=== PATIENT | female | born 1980 | race Asian ===

== ENCOUNTER 2016-10-13 11:38 | Emergency (ER) | payer OTHER ==
[~2016-10-13] VITALS: Ht 160 cm; Wt 65.3 kg
[2016-10-13 11:38] VITALS: BP_SYST 129
--- NOTE | 2016-10-13 11:38 | NUR ---
Patient triaged and placed in waiting room. VSS and patient appears in no acute distress at this time. Accompanied by SELF, awaiting available bed, and MD notified of need for MSE.
--- NOTE | 2016-10-13 12:00 | NUR ---
BROUGHT BACK TO BED #7 AND TRIAGED. REPORT GIVEN TO CALDERON
--- NOTE | 2016-10-13 12:05 | NUR ---
Dr. Arrieta at bedside examining patient.Recieved new orders.
--- NOTE | 2016-10-13 12:10 | NUR ---
Patient brought self in with chief complaint of fever and joint pain related to her lupus.Patient is alert and oriented x 4, able to verbalize her needs complaining of fever and joint pain. No other complaints, injuries per patient, none noted.
[2016-10-13] MEDS ORDERED: LEVOFLOXACIN 500 MG/D5W 100 ML IV ONE (12:15)
[2016-10-13] MEDS ORDERED: KETOROLAC TROMETHAMINE 30 MG VIAL IVP ONE (12:15)
[2016-10-13] MEDS ORDERED: NACL 0.9% 1,000 ML IV ONE (12:15)
[2016-10-13] MEDS ORDERED: ACETAMINOPHEN 500 MG TABLET PO ONE (12:15)
[2016-10-13 12:19] LABS: BASOPHILS % (AUTO) 0.2 % (0.0-2.0); EOSINOPHILS % (AUTO) 0.3 % (0.0-4.0); HEMATOCRIT 40.8 % (36-48); HEMOGLOBIN 13.5 g/dL (12.0-16.0); LYMPHOCYTES # (AUTO) 0.9 K/uL (1.0-5.5); LYMPHOCYTES % (AUTO) 16.8 % (20.5-51.5); MEAN CORPUSCULAR HEMOGLOBIN 28 pg (27-31); MEAN CORPUSCULAR HGB CONC 33 % (32-36); MEAN CORPUSCULAR VOLUME 85 fL (79.0-98.0); MONOCYTES # (AUTO) 0.3 K/uL (0.0-1.0); MONOCYTES % (AUTO) 5.1 % (1.7-9.3); NEUTROPHILS # (AUTO) 4.3 K/uL (1.8-7.7); NEUTROPHILS % (AUTO) 77.6 % (40.0-70.0); PLATELET COUNT (AUTO) 188 K/uL (130-430); RED BLOOD CELL COUNT(AUTO) 4.82 MIL/uL (4.2-6.2); RED CELL DISTRIBUTION WIDTH 11.1 % (9.0-15.0); WHITE BLOOD COUNT (AUTO) 5.5 K/uL (4.8-10.8)
[2016-10-13 12:37] LABS: PROTHROMBIN TIME 10.8 SECS (9.5-12.5)
[2016-10-13 12:41] LABS: CALCIUM 9.1 mg/dL (8.4-11.0); CREATININE 0.75 mg/dL (0.55-1.30); POTASSIUM 3.7 mmol/L (3.5-5.1)
[2016-10-13 12:48] LABS: ALBUMIN 3.7 g/dL (3.4-4.8); TOTAL BILIRUBIN 0.2 mg/dL (0.0-1.0); TOTAL PROTEIN, SERUM 8.4 g/dL (6.4-8.3)
[2016-10-13 13:04] LABS: BILIRUBIN,URINE NEGATIVE (NEGATIVE); BLOOD, URINE TRACE (NEGATIVE); CLARITY/URINE CLEAR (CLEAR); COLOR,URINE YELLOW (YELLOW); GLUCOSE,URINE NEGATIVE (NEGATIVE); KETONES,URINE NEGATIVE (NEGATIVE); LEUKOCYTE ESTERASE ,URINE 1+ (NEGATIVE); NITRITE, URINE NEGATIVE (NEGATIVE); PROTEIN URINE TRACE (NEGATIVE); UROBILINOGEN,URINE 0.2 (0.2-1.0)
[2016-10-13 13:09] LABS: ERYTHROCYTE SEDIMENTATION RATE 30 MM/HR (0-20)
[2016-10-13 13:23] LABS: BACTERIA,URINE RARE /HPF (None Seen); RBC,URINE 0-3 /HPF (0-3)
--- NOTE | 2016-10-13 13:30 | NUR ---
Oral temp 102.2
[2016-10-13 16:30] VITALS: BP_SYST 129
--- NOTE | 2016-10-13 16:30 | NUR ---
Patient given written and verbal discharge instructions and verbalizes understanding. ER MD Arrieta discussed with patient the results and treatment provided. Given copies of tests performed in ER. Patient in stable condition. ID arm band removed. IV catheter removed intact and dressing applied, no active bleeding. Rx of Cipro given. Patient educated on pain management and to follow up with PMD. Pain Scale 0/10. Opportunity for questions provided and answered.
== END 2016-10-13 16:30 | disposition home or self-care (01) ==
LOC: SED 11:38
DX: R50.9 Fever, unspecified (principal); J45.909 Unspecified asthma, uncomplicated; M32.9 Systemic lupus erythematosus, unspecified; Z88.0 Allergy status to penicillin; Z88.1 Allergy status to other antibiotic agents
CPT/HCPCS: 36415; 71010; 80053; 81000; 83605; 85025; 85610; 85651; 85730; 86710; 87040; 87086; 93005; 96365; 96375; 99285; J1885; J1956

== ENCOUNTER 2020-05-08 08:56 | Outpatient (CLI) | payer OTHER ==
[2020-05-08] MEDS ORDERED: GADOBENATE DIMEGLUMINE 529 MG/ML, 15 ML VIAL IV ONE (09:49)
== END 2020-05-09 15:09 | disposition home or self-care (01) ==
LOC: SMI 08:56
DX: R22.0 Localized swelling, mass and lump, head (principal)
CPT/HCPCS: 70543; 70553; A9577

== ENCOUNTER 2021-11-27 09:13 | Outpatient (CLI) | payer OTHER | END 2021-11-27 20:53 | disposition home or self-care (01) | LOC: SMI 09:13 | DX: M25.861 Other specified joint disorders, right knee (principal); M65.9 Synovitis and tenosynovitis, unspecified; M06.9 Rheumatoid arthritis, unspecified | CPT/HCPCS: 73221; 73721 ==

== ENCOUNTER 2023-03-28 06:54 | Emergency (ER) | payer OTHER ==
[~2023-03-28] VITALS: Ht 165.1 cm; Wt 70.3 kg
[2023-03-28 06:59] VITALS: BP_SYST 129; PULSE 108; RESP 18; TEMP 99.3; O2SAT 98
[2023-03-28] MEDS ORDERED: NACL 0.9% 1,000 ML IV ONE (07:15)
[2023-03-28] MEDS ORDERED: KETOROLAC TROMETHAMINE 30 MG VIAL IVP ONE (07:15)
[2023-03-28 07:27] LABS: BASOPHILS % (AUTO) 0.5 % (0.0-2.0); EOSINOPHILS # (AUTO) 0.1 K/uL (0.0-0.4); EOSINOPHILS % (AUTO) 2.3 % (0.0-4.0); HEMATOCRIT 37.2 % (36-48); HEMOGLOBIN 12.2 g/dL (12.0-16.0); LYMPHOCYTES # (AUTO) 0.9 K/uL (1.0-5.5); LYMPHOCYTES % (AUTO) 14.7 % (20.5-51.5); MEAN CORPUSCULAR HEMOGLOBIN 28 pg (27-31); MEAN CORPUSCULAR HGB CONC 33 % (32-36); MEAN CORPUSCULAR VOLUME 85 fL (79.0-98.0); MONOCYTES # (AUTO) 0.6 K/uL (0.0-1.0); MONOCYTES % (AUTO) 9.1 % (1.7-9.3); NEUTROPHILS # (AUTO) 4.7 K/uL (1.8-7.7); NEUTROPHILS % (AUTO) 73.4 % (40.0-70.0); PLATELET COUNT (AUTO) 264 K/uL (130-430); RED CELL DISTRIBUTION WIDTH 12.7 % (9.0-15.0); WHITE BLOOD COUNT (AUTO) 6.4 K/uL (4.8-10.8)
[2023-03-28 07:40] LABS: ERYTHROCYTE SEDIMENTATION RATE 41 MM/HR (0-20)
[2023-03-28 07:42] LABS: CREATININE 0.64 mg/dL (0.55-1.30); POTASSIUM 3.8 mmol/L (3.5-5.1)
[2023-03-28 07:47] LABS: ALBUMIN 3.4 g/dL (3.4-4.8); TOTAL BILIRUBIN 0.3 mg/dL (0.0-1.0); TOTAL PROTEIN, SERUM 7.8 g/dL (6.4-8.3)
[2023-03-28 08:40] LABS: INFLUENZA TYPE A Negative (NEGATIVE); INFLUENZA TYPE B NEGATIVE (NEGATIVE)
[2023-03-28] MEDS ORDERED: ONDANSETRON 4 MG ODT TAB PO ONE (09:30)
[2023-03-28] MEDS ORDERED: FIORCET PO PRN (09:30)
[2023-03-28] MEDS ORDERED: MORPHINE 2 MG/ML INJ. SYRINGE IVP ONE (10:00)
[2023-03-28] MEDS ORDERED: [UNRECOGNIZED DRUG - CODE] PO (11:04)
[2023-03-28] MEDS ORDERED: LEVO750T64 PO (11:04)
[2023-03-28 11:50] VITALS: BP_SYST 115; PULSE 77; RESP 18; TEMP 97.8; O2SAT 99
== END 2023-03-28 11:54 | disposition home or self-care (01) ==
LOC: SED 06:54
DX: J01.30 Acute sphenoidal sinusitis, unspecified (principal); R51.9 Headache, unspecified; M54.2 Cervicalgia; R11.0 Nausea; J45.909 Unspecified asthma, uncomplicated; Z88.0 Allergy status to penicillin; Z88.1 Allergy status to other antibiotic agents; Z79.899 Other long term (current) drug therapy; Z20.822 Contact with and (suspected) exposure to COVID-19
CPT/HCPCS: 99285; 96374; 70450; 96361; 96375; 87426; 80053; 85025; 85651; 87040; 84484; 36415; 93005; 76376; 83605; 87804 ×2; Q0162; J1885; J2270; J7030

== ENCOUNTER 2023-08-14 23:06 | Inpatient (IN) | payer OTHER ==
[~2023-08-14] VITALS: Ht 162.6 cm; Wt 66.7 kg
[~2023-08-14 23:06] MED LIST: LEVO750T64 PO; [UNRECOGNIZED DRUG - CODE] PO
[2023-08-14 23:18] VITALS: BP_SYST 138; PULSE 99; RESP 24; TEMP 98.9; O2SAT 100
[2023-08-15 00:48] LABS: BASOPHILS % (AUTO) 0.3 % (0.0-2.0); EOSINOPHILS # (AUTO) 0.1 K/uL (0.0-0.4); EOSINOPHILS % (AUTO) 0.8 % (0.0-4.0); HEMOGLOBIN 11.3 g/dL (12.0-16.0); LYMPHOCYTES # (AUTO) 0.9 K/uL (1.0-5.5); LYMPHOCYTES % (AUTO) 10.5 % (20.5-51.5); MEAN CORPUSCULAR HEMOGLOBIN 28 pg (27-31); MEAN CORPUSCULAR HGB CONC 33 % (32-36); MEAN CORPUSCULAR VOLUME 83 fL (79.0-98.0); MONOCYTES # (AUTO) 0.6 K/uL (0.0-1.0); MONOCYTES % (AUTO) 7.3 % (1.7-9.3); NEUTROPHILS % (AUTO) 81.1 % (40.0-70.0); PLATELET COUNT (AUTO) 366 K/uL (130-430); RED BLOOD CELL COUNT(AUTO) 4.09 MIL/uL (4.2-6.2); RED CELL DISTRIBUTION WIDTH 13.1 % (9.0-15.0); WHITE BLOOD COUNT (AUTO) 8.6 K/uL (4.8-10.8)
[2023-08-15 01:21] LABS: ALANINE AMINOTRANSFERASE 26 U/L (12-78); ALBUMIN 2.8 g/dL (3.4-4.8); ANION GAP 9 (5-15); ASPARTATE AMINOTRANSFERASE 16 U/L (10-37); CALCIUM 8.7 mg/dL (8.4-11.0); CARBON DIOXIDE 28 mmol/L (23-29); CHLORIDE 104 mmol/L (98-107); CREATININE 0.56 mg/dL (0.55-1.30); GFR AFRICAN AMERICAN 153 mL/min (>90); GFR NON AFRICAN-AMERICAN 127 mL/min (>90); GLUCOSE 204 mg/dL (74-106); POTASSIUM 3.9 mmol/L (3.5-5.1); SODIUM SERUM 141 mmol/L (136-145); TOTAL BILIRUBIN 0.1 mg/dL (0.0-1.0); UREA NITROGEN, BLOOD 15 mg/dL (8-21)
[2023-08-15] MEDS ORDERED: IOHEXOL 350 mgI/mL, 150 ML INFUS..BTL IV ONE (03:54)
[2023-08-15] MEDS: NACL 0.9% 1,000 ML IV ONE (04:12)
[2023-08-15] MEDS: MORPHINE 4 MG INJ. 4 MG/ML VIAL IVP ONE (04:14)
[2023-08-15] MEDS: IPRATROPIUM/ALBUTEROL SULFATE 3 ML AMPUL.NEB (DUONEB) INH ONE (05:10)
[2023-08-15] MEDS ORDERED: ONDANSETRON HCL 4 MG/2 ML VIAL IVP PRN (06:45)
[2023-08-15] MEDS ORDERED: PRED20TA (07:38)
[2023-08-15] MEDS ORDERED: METF-1069 PO (07:38)
[2023-08-15] MEDS ORDERED: METH2.5S PO (07:38)
[2023-08-15] MEDS ORDERED: HYDR200T80 PO (07:38)
[2023-08-15 09:07] VITALS: BP_SYST 133; PULSE 87; RESP 18; TEMP 97; O2SAT 99
[2023-08-15 09:10] VITALS: BP_SYST 133; PULSE 87; RESP 18; TEMP 97; O2SAT 99
[2023-08-15] MEDS: METHYLPREDNISOLONE SOD SUCC 40 MG/ML VIAL IVP ONE (09:49)
[2023-08-15 11:37] VITALS: BP_SYST 139; PULSE 91; RESP 18; TEMP 97.1; O2SAT 99
[2023-08-15] MEDS: traMADol HCL HCL 50 MG TABLET (ULTRAM) PO SCH (12:00)
[2023-08-15] MEDS: MORPHINE 2 MG/ML INJ. SYRINGE IVP PRN (13:54)
[2023-08-15] MEDS ORDERED: NAPR-690 PO (14:12)
[2023-08-15] MEDS ORDERED: LEUC10TA2 PO (14:12)
[2023-08-15] MEDS ORDERED: CELE200C PO (14:12)
[2023-08-15] MEDS ORDERED: METH-799 PO (14:12)
[2023-08-15] MEDS ORDERED: METH15TA3 PO (14:12)
[2023-08-15 19:50] VITALS: BP_SYST 115; PULSE 82; RESP 20; TEMP 96.8; O2SAT 95
[2023-08-15] MEDS ORDERED: methocarbamoL 500 MG TABLET PO PRN (21:45)
[2023-08-15] MEDS: METHYLPREDNISOLONE SOD SUCC 40 MG/ML VIAL IVP SCH (21:54)
[2023-08-15] MEDS: HYDROXYCHLOROQUINE SULFATE 200 MG TABLET ONE (22:06)
[2023-08-15] MEDS: HYDROXYCHLOROQUINE SULFATE 200 MG TABLET PO SCH (22:06)
[2023-08-15 23:41] VITALS: BP_SYST 126; PULSE 76; RESP 18; TEMP 96.6; O2SAT 99
[2023-08-16 04:14] LABS: BASOPHILS % (AUTO) 0.1 % (0.0-2.0); HEMATOCRIT 33.2 % (36-48); LYMPHOCYTES # (AUTO) 0.6 K/uL (1.0-5.5); MEAN CORPUSCULAR HEMOGLOBIN 27 pg (27-31); MEAN CORPUSCULAR HGB CONC 33 % (32-36); MEAN CORPUSCULAR VOLUME 82 fL (79.0-98.0); MONOCYTES # (AUTO) 0.2 K/uL (0.0-1.0); MONOCYTES % (AUTO) 3.1 % (1.7-9.3); NEUTROPHILS # (AUTO) 6.1 K/uL (1.8-7.7); NEUTROPHILS % (AUTO) 88.8 % (40.0-70.0); PLATELET COUNT (AUTO) 370 K/uL (130-430); RED BLOOD CELL COUNT(AUTO) 4.04 MIL/uL (4.2-6.2); RED CELL DISTRIBUTION WIDTH 12.8 % (9.0-15.0); WHITE BLOOD COUNT (AUTO) 6.9 K/uL (4.8-10.8)
[2023-08-16 04:27] LABS: CALCIUM 9.3 mg/dL (8.4-11.0); CREATININE 0.55 mg/dL (0.55-1.30); POTASSIUM 4.2 mmol/L (3.5-5.1)
[2023-08-16 04:37] LABS: ALBUMIN 2.4 g/dL (3.4-4.8); TOTAL BILIRUBIN 0.1 mg/dL (0.0-1.0); TOTAL PROTEIN, SERUM 7.2 g/dL (6.4-8.3)
[2023-08-16 08:07] VITALS: BP_SYST 126; PULSE 83; RESP 16; TEMP 98; O2SAT 99
[2023-08-16 08:58] VITALS: O2SAT 97
[2023-08-16] MEDS: ENOXAPARIN SODIUM 40 MG/0.4 ML SYRINGE SUBCUT ONE (10:46)
[2023-08-16] MEDS: AZITHROMYCIN 250 MG TABLET PO ONE (13:28)
[2023-08-16] MEDS: PROMETHAZINE-DM 6.25 MG-15 MG/5 ML UDC PO PRN (13:28)
[2023-08-16 14:06] VITALS: PULSE 79; O2SAT 100
[2023-08-16] MEDS: ALBUTEROL SULFATE 0.083% 2.5 MG/3 ML VIAL.NEB INH PRN (14:06)
[2023-08-16 16:00] VITALS: BP_SYST 132; PULSE 77; RESP 18; TEMP 97.8
[2023-08-16 20:05] VITALS: BP_SYST 133; PULSE 87; RESP 18; TEMP 97.7; O2SAT 100
[2023-08-16 20:20] VITALS: O2SAT 97
[2023-08-16] MEDS: CELECOXIB 200 MG CAPSULE PO SCH (21:00)
[2023-08-17] VITALS (7 sets, daily range): BP systolic 129–157; PULSE 73–86; RESP 17–19; TEMP 97.9–98.3; O2SAT 96–100
[2023-08-17 06:05] LABS: FREE T4 (FREE THYROXINE) 1.3 ng/dL (0.6-1.6); THYROID STIMULATING HORMONE 0.29 uIu/mL (0.34-4.82)
[2023-08-17 06:27] LABS: PROTHROMBIN TIME 10.5 SECS (9.5-12.5)
[2023-08-17] MEDS: ENOXAPARIN SODIUM 40 MG/0.4 ML SYRINGE SUBCUT SCH (09:35)
== END 2023-08-17 19:13 | disposition home or self-care (01) | DRG 546 ==
LOC: SED 23:06 → EEVIPCON 08-15 06:36 → STU 08-15 06:36
PROVIDERS: ADMIT Family Medicine; ATTEND Family Medicine
DX: M32.9 Systemic lupus erythematosus, unspecified (principal); J90 Pleural effusion, not elsewhere classified; I10 Essential (primary) hypertension; E11.40 Type 2 diabetes mellitus with diabetic neuropathy, unspecified; J45.909 Unspecified asthma, uncomplicated; R00.0 Tachycardia, unspecified; Z20.822 Contact with and (suspected) exposure to COVID-19; M79.89 Other specified soft tissue disorders; R79.89 Other specified abnormal findings of blood chemistry; M06.9 Rheumatoid arthritis, unspecified; Z88.2 Allergy status to sulfonamides; Z88.1 Allergy status to other antibiotic agents; Z88.0 Allergy status to penicillin; Z88.8 Allergy status to other drugs, medicaments and biological substances
CPT/HCPCS: 36415; 71046; 71275; 76376; 80053; 80061; 82550; 83690; 83735; 83880; 84439; 84443; 84480; 84484; 85025; 85379; 85384; 85610; 85651; 85730; 93005; 93306; 93971; 94640; 94664; 94760; 99285; G0378; J1030; J1650; J2270; Q0144; Q9967